=== PATIENT | male | born 1955 | race Caucasian/White ===

== ENCOUNTER 2016-07-04 12:49 | Emergency (ER) | payer OTHER ==
[~2016-07-04] VITALS: Ht 182.9 cm; Wt 97.7 kg
[~2016-07-04 12:49] MED LIST: DIAZ5TAB3 PO; ERGO400C PO; FLUT16SP NS; HYDR2TAB27 PO; METF500T4 PO; OMEG1CAP25 PO; OMEP20TA86 PO; PRAZ1CAP2 PO; TRIA10.8 NS; VITE PO
[2016-07-04 12:58] VITALS: BP 152/88; PULSE 73; RESP 16; O2SAT 97
[2016-07-04] MEDS ORDERED: HYDROmorphone 1 mg/mL Inj IM ONE (13:30)
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
--- NOTE | 2016-07-04 14:39 | DRSVH ---
PROCEDURE: CT CERVICAL SPINE WITHOUT CONTRAST ([id number]) INDICATIONS: midline cervical tenderness TECHNIQUE: Noncontrast 3 mm thick sections acquired from the skull base to the T4 level. Sagittal and coronal r eformats were then constructed. For radiation dose reduction, the following was used: automated exp osure control, adjustment of mA and/or kV according to patient size. COMPARISON: None. FINDINGS: Image quality: Excellent. Bones: No fractures or dislocations. Visualized superior ribs are intact. Soft tissues: Prevertebral soft tissues are normal in thickness. No paravertebral hematomas. No ap ical pneumothoraces. IMPRESSION: No acute cervical spine injury. Dictated by: Love Foley M.D. on 07/04/2016 at 14:37 Approved by: Love Foley M.D. on 07/04/2016 at 14:37
[2016-07-04] MEDS ORDERED: LORazepam 0.5 mg Tablet PO ONE (15:00)
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
--- NOTE | 2016-07-04 15:43 | DRSVH ---
PROCEDURE: US ABDOMEN, LIMITED ([id number]) INDICATIONS: lower abdominal tenderness, right upper quadrant t TECHNIQUE: Real-time focused scanning was performed of the abdomen, with image documentation. COMPARISON: [facility], US, US ABDOMEN, 06/12/2016, 7:06. FINDINGS: Limited exam demonstrating no ascites throughout the 4 quadrants of the abdomen. Mild sple nomegaly redemonstrated which measures up to 13.8 cm in length similar to prior exam. IMPRESSION: No ascites. Mild sonographic splenomegaly redemonstrated Dictated by: Tyler CONDE Interpreted: Sima Tapia MD on 07/04/2016 at 15:43 Transcribed by: NOMAN on 07/04/2016 at 15:43 Approved by: Sima Tapia M.D. on 07/05/2016 at 16:21
== END 2016-07-04 16:18 | disposition home or self-care (01) ==
LOC: SED 12:49 → EDBD 12:49 → EDSEX 12:49 → SED 16:18
DX: S16.1XXA Strain of muscle, fascia and tendon at neck level, initial encounter (principal); S39.012A Strain of muscle, fascia and tendon of lower back, initial encounter; S29.012A Strain of muscle and tendon of back wall of thorax, initial encounter; V49.49XA Driver injured in collision with other motor vehicles in traffic accident, initial encounter; Y93.89 Activity, other specified; Y92.410 Unspecified street and highway as the place of occurrence of the external cause; Y99.8 Other external cause status; Z79.84 Long term (current) use of oral hypoglycemic drugs; Z88.5 Allergy status to narcotic agent; Z88.8 Allergy status to other drugs, medicaments and biological substances; Z91.041 Radiographic dye allergy status
CPT/HCPCS: 72070; 72100; 72125; 76705; 96372; 99285; J1170